=== PATIENT | male | born 1960 | race Caucasian/White ===

== ENCOUNTER → 2019-05-06 | Outpatient (CLI) | payer OTHER ==
[~2019-05-06] MED LIST: CENTRUM1 TAB; FISH OIL500 MG PO; LISINOPRIL/HYDR1 TAB PO; LISINOPRIL20 MG PO; NORVASC; ZOCOR
== END ==
LOC: COL.RAD 10:29
DX: M75.112 Incomplete rotator cuff tear or rupture of left shoulder, not specified as traumatic (principal); M19.012 Primary osteoarthritis, left shoulder